=== PATIENT | male | born 2000 | race Two or more races ===

== ENCOUNTER 2020-11-08 16:47 | Emergency (ER) | payer SELFPAY ==
[~2020-11-08] VITALS: Ht 190.5 cm; Wt 7.7 kg
--- NOTE | 2020-11-08 16:59 | NUR ---
SURESH FROM A BUSTOP TO ER BED 15. AAOX3. NOT IN RESP DISTRESS. BREATHING EVEN AND UNLABORED. BROUGHT IN FOR ALCOHOL INTOXICATION. PT WAS REPORTED TO BE LYING AND SLEEPING IN A BUS STOP. PT ADMIT TO DRINKING 1/2 GALLON OF VODKA TODAY. DENIES ANY PAIN. NO S/S OF WITHDRAWAL. AWAITING FOR MD GAMINO AND ORDERS
[2020-11-08 17:38] LABS: BASOPHILS # (AUTO) 0.1 /CMM (0.0-0.2); BASOPHILS % (AUTO) 2.2 % (0.0-2.0); EOSINOPHILS % (AUTO) 7.8 % (0.0-6.0); HEMATOCRIT 48 % (39-51); LYMPHOCYTES # (AUTO) 2.9 /CMM (0.8-4.8); LYMPHOCYTES % (AUTO) 51.9 % (20.0-44.0); MEAN CORPUSCULAR HGB CONC 34 g/dl (31.0-36.0); MEAN CORPUSCULAR VOLUME 97 fL (80-96); MONOCYTES # (AUTO) 0.6 /CMM (0.1-1.30); MONOCYTES % (AUTO) 10.8 % (2.0-12.0); NEUTROPHILS # (AUTO) 1.5 /CMM (1.8-8.9); NEUTROPHILS % (AUTO) 27.3 % (43.0-81.0); PLATELET COUNT (AUTO) 360 /CMM (150-450); RED BLOOD CELL COUNT(AUTO) 4.89 MIL/uL (4.5-6.0); WHITE BLOOD COUNT (AUTO) 5.6 K/uL (4.3-11.0)
[2020-11-08 18:13] LABS: CALCIUM, SERUM 8.9 mg/dL (8.5-10.1); CARBON DIOXIDE 33 mmol/L (21-32); CHLORIDE 99 mmol/L (98-107); CREATININE 0.9 mg/dL (0.6-1.3); GLUCOSE 101 mg/dL (74-106); POTASSIUM 3.9 mmol/L (3.5-5.1); SODIUM SERUM 141 mmol/L (136-145); UREA NITROGEN, BLOOD 8 mg/dL (7-18)
[2020-11-08 18:23] LABS: ALANINE AMINOTRANSFERASE 150 U/L (12-78); ALBUMIN 4.7 g/dL (3.4-5.0); ALCOHOL, BLOOD 449 mg/dL (0-0); ALKALINE PHOSPHATASE 135 U/L (46-116); ASPARTATE AMINOTRANSFERASE 100 U/L (15-37); BILIRUBIN,DIRECT 0.1 mg/dL (0.0-0.2); BILIRUBIN,TOTAL 0.4 mg/dL (0.2-1.0); TOTAL PROTEIN, SERUM 8.6 g/dL (6.4-8.2)
[2020-11-08 18:25] LABS: ACETAMINOPHEN < 2 ug/ml (10-30)
[2020-11-08 19:15] LABS: BILIRUBIN,URINE Negative (NEGATIVE); COLOR,URINE YELLOW (YELLOW); LEUKOCYTE ESTERASE ,URINE Negative (NEGATIVE); NITRITE, URINE Negative (NEGATIVE); PROTEIN,URINE Negative (NEGATIVE); UGLUCOSE Negative (NEGATIVE); UROBILINOGEN,URINE 0.2 EU/dL (0.2)
[2020-11-08 19:34] LABS: BACTERIA,URINE Rare /HPF (None Seen); SQUAMOUS EPITHELIAL CELL,UR Few /HPF (None Seen); WBC,URINE NONE SEEN /HPF (0-3)
--- NOTE | 2020-11-08 22:21 | NUR ---
PT IN BED SLEEPING
--- NOTE | 2020-11-09 05:18 | NUR ---
PT ROADTESTED. PT AMBULATORY W/ STEADY GAIT
--- NOTE | 2020-11-09 05:36 | NUR ---
PT AWAKE, AMBULATORY WITH STEADY GAIT. PT WAS DISCHARGED, VITALS STABLE.
[2020-11-09 05:37] VITALS: BP 122/71
== END 2020-11-09 05:37 | disposition home or self-care (01) ==
LOC: ER 16:48
DX: F10.129 Alcohol abuse with intoxication, unspecified (principal); K70.10 Alcoholic hepatitis without ascites; Y90.8 Blood alcohol level of 240 mg/100 ml or more
CPT/HCPCS: 36415; 80048-TC; 80076-TC; 81001; 85025-TC; G0480